=== PATIENT | male | born 1950 | race Caucasian/White ===

== ENCOUNTER 2021-02-12 12:19 | Inpatient (IN) | payer OTHER, BC ==
[2021-02-12 13:04] VITALS: BMI 24.4
[2021-02-12] MEDS ORDERED: diazePAM 5 MG TABLET ONE (13:33)
[2021-02-12] MEDS ORDERED: MENTHOL/PHENOL 1 EACH UD MM PRN (13:33)
[2021-02-12] MEDS ORDERED: BISMUTH SUBSALICYLATE 262 MG/15 ML BTL PO PRN (13:33)
[2021-02-12] MEDS ORDERED: hydrOXYzine PAMOATE 25 MG CAPSULE (FP) PO PRN (13:33)
[2021-02-12] MEDS ORDERED: MAG HYDROX/AL HYDROX/SIMETH 30 ML UNIT-DOSE CUP PO PRN (13:33)
[2021-02-12] MEDS ORDERED: ACETAMINOPHEN 325 MG TABLET (FP) PO PRN ×2 (13:33)
[2021-02-12] MEDS ORDERED: METHOCARBAMOL 500 MG TABLET PO PRN (13:33)
[2021-02-12] MEDS ORDERED: MAGNESIUM CITRATE 300 ML BOTTLE PO PRN (13:33)
[2021-02-12] MEDS ORDERED: IBUPROFEN 400 MG TABLET (FP) PO PRN (13:33)
[2021-02-12] MEDS ORDERED: ONDANSETRON *ODT* 4 MG TABLET SL PRN (13:33)
[2021-02-12] MEDS ORDERED: diazePAM 5 MG TABLET PO ONE (13:37)
[2021-02-12] MEDS ORDERED: diazePAM 5 MG TABLET PO PRN (13:46)
[2021-02-12 14:59] LABS: HEMATOCRIT 43.7 % (35.4-49); MCH 31.6 pg (25.7-33.7); MCHC 34.4 g/dl (32.0-35.9); MEAN CELL VOLUME 91.8 fl (80-96); MEAN PLT VOLUME 6.6 fl (7.5-11.1); PLATELET COUNT 195 10^3/uL (134-434); RBC 4.76 M/mm3 (4.00-5.60); RDW 17.1 % (11.9-15.9); WHITE BLOOD COUNT 5.7 K/mm3 (4.0-10.0)
[2021-02-12 15:02] LABS: ALBUMIN 4.4 g/dl (3.4-5.0); BLOOD UREA NITROGEN 12.8 mg/dL (7-18); CALCIUM 9.4 mg/dL (8.5-10.1)
[2021-02-12 15:05] LABS: CREATININE 0.9 mg/dL (0.55-1.3)
[2021-02-12 15:07] LABS: BILIRUBIN,TOTAL 0.8 mg/dL (0.2-1)
[2021-02-12 15:08] LABS: TOT PROT 7.6 g/dl (6.4-8.2)
[2021-02-12] MEDS ORDERED: chlorproMAZINE HCL 25 MG TABLET PO PRN (15:43)
[2021-02-12] MEDS ORDERED: BACLOFEN 10 MG TABLET (FP) PO PRN (15:50)
[2021-02-12] MEDS: diazePAM 5 MG TABLET PO SCH ×2 (17:05→23:07)
[2021-02-12] MEDS: diazePAM 5 MG TABLET PO PRN (21:06)
[2021-02-12] MEDS: THIAMINE HCL 100 MG TABLET (FP) PO SCH (23:07)
[2021-02-12] MEDS: traZODone HCL 50 MG TABLET (FP) PO PRN (23:08)
[2021-02-12] MEDS: MELATONIN 5 MG TABLETS PO SCH (23:08)
[2021-02-13] MEDS: diazePAM 5 MG TABLET PO SCH ×4 (05:32→22:01)
[2021-02-13] MEDS ORDERED: cloNIDine HCL 0.1 MG TABLET PO PRN (08:41)
[2021-02-13] MEDS: diazePAM 5 MG TABLET PO PRN ×3 (08:46→19:27)
[2021-02-13] MEDS: MAGNESIUM HYDROX 2400MG/30ML ORAL SUSPENSION 30 ML CUP PO PRN (08:49)
[2021-02-13] MEDS: LEVOTHYROXINE NA 25 MCG TABLET (FP) PO SCH (10:13)
[2021-02-13] MEDS: PRENATAL VITAMINS W/ FOLIC ACID TABLET (FP) PO SCH (10:13)
[2021-02-13] MEDS: POLYETHYLENE GLYCOL 3350 119 GM BTL PO SCH (10:15)
[2021-02-13] MEDS ORDERED: diazePAM 5 MG TABLET PO PRN (10:31)
[2021-02-13] MEDS: [UNRECOGNIZED DRUG - OTHER] OU SCH ×2 (11:28→22:04)
[2021-02-13] MEDS: hydrOXYzine PAMOATE 25 MG CAPSULE (FP) PO PRN ×2 (11:47→16:59)
[2021-02-13] MEDS ORDERED: traZODone HCL 50 MG TABLET (FP) PO SCH (22:00)
[2021-02-13] MEDS: THIAMINE HCL 100 MG TABLET (FP) PO SCH (22:01)
[2021-02-13] MEDS: MELATONIN 5 MG TABLETS PO SCH (22:02)
[2021-02-13] MEDS: traZODone HCL 50 MG TABLET (FP) PO PRN (22:04)
[2021-02-14] MEDS: diazePAM 5 MG TABLET PO SCH ×3 (05:03→21:56)
[2021-02-14] MEDS: hydrOXYzine PAMOATE 25 MG CAPSULE (FP) PO PRN ×3 (05:04→17:15)
[2021-02-14] MEDS: LEVOTHYROXINE NA 25 MCG TABLET (FP) PO SCH (06:03)
[2021-02-14] MEDS: diazePAM 5 MG TABLET PO PRN ×2 (08:08→11:46)
[2021-02-14] MEDS: MAGNESIUM HYDROX 2400MG/30ML ORAL SUSPENSION 30 ML CUP PO PRN (09:30)
[2021-02-14] MEDS: [UNRECOGNIZED DRUG - OTHER] OU SCH ×2 (10:28→22:44)
[2021-02-14] MEDS: POLYETHYLENE GLYCOL 3350 119 GM BTL PO SCH (10:28)
[2021-02-14] MEDS: PRENATAL VITAMINS W/ FOLIC ACID TABLET (FP) PO SCH (10:28)
[2021-02-14] MEDS: THIAMINE HCL 100 MG TABLET (FP) PO SCH (21:55)
[2021-02-14] MEDS: MELATONIN 5 MG TABLETS PO SCH (21:56)
[2021-02-14] MEDS: traZODone HCL 50 MG TABLET (FP) PO PRN (21:59)
[2021-02-15] MEDS ORDERED: diazePAM 5 MG TABLET PO SCH (06:00)
[2021-02-15] MEDS: LEVOTHYROXINE NA 25 MCG TABLET (FP) PO SCH (06:06)
[2021-02-15 08:49] VITALS: BP 119/67; PULSE 67; TEMP 98
[2021-02-15] MEDS: hydrOXYzine PAMOATE 25 MG CAPSULE (FP) PO PRN (09:12)
[2021-02-15] MEDS: [UNRECOGNIZED DRUG - OTHER] OU SCH (09:12)
[2021-02-16] MEDS ORDERED: diazePAM 5 MG TABLET PO ONE (06:00)
== END 2021-02-15 09:14 | disposition home or self-care (01) | DRG 897 ==
LOC: YASAS 12:19 → Y6N 13:49
PROVIDERS: ADMIT Allergy & Immunology; ATTEND Allergy & Immunology
PROC: HZ2ZZZZ Detoxification Services for Substance Abuse Treatment (ICD-10-PCS; principal; 2021-02-12)
DX: F10.230 Alcohol dependence with withdrawal, uncomplicated (principal); F10.282 Alcohol dependence with alcohol-induced sleep disorder; F10.280 Alcohol dependence with alcohol-induced anxiety disorder; F41.9 Anxiety disorder, unspecified; E03.9 Hypothyroidism, unspecified; G47.00 Insomnia, unspecified; R26.89 Other abnormalities of gait and mobility; Z85.819 Personal history of malignant neoplasm of unspecified site of lip, oral cavity, and pharynx
CPT/HCPCS: 36415; 80053; 85027; 86780; C9803; J0475; U0003; U0005